=== PATIENT | female | born 1985 | race Caucasian/White ===

== ENCOUNTER 2018-11-12 05:41 | Inpatient (IN) | payer MEDICAID ==
[2018-11-12] MEDS ORDERED: Oxytocin 10 Units/1 ML SDV ONE ×2 (06:34→08:07)
[2018-11-12] MEDS: Lactated Ringers 1,000 ML IV SCH ×3 (06:53→20:31)
[2018-11-12] MEDS ORDERED: ePHEDrine 50 MG/ML SDV ONE (07:50)
[2018-11-12] MEDS ORDERED: ceFAZolin 2 GM in Premix Bag 1 BAG IV ONE (08:00)
[2018-11-12] MEDS ORDERED: fentaNYL 100 MCG/2 ML SDV ONE (08:22)
[2018-11-12] MEDS ORDERED: hydrOXYzine HCl 100 MG/2 ML SDV IM PRN (08:39)
[2018-11-12] MEDS ORDERED: Ondansetron 4 MG/2 ML SDV IVPUSH PRN (08:45)
[2018-11-12] MEDS: fentaNYL 100 MCG/2 ML SDV IVPUSH PRN ×5 (09:46→16:30)
--- NOTE | 2018-11-12 11:52 | OR ---
DATE OF PROCEDURE: 11/12/2018 PREOPERATIVE DIAGNOSES: Term , prior section. POSTOPERATIVE DIAGNOSES: Term , prior section. PROCEDURE: Repeat section. SURGEON: Tj Treadwell MD CARDIAC SURGEON: Christine Madrid, certified nurse head filter tank tender helper. Per [employer] standard of care guidelines, this operation requires a assistant baseball coach. Jade Maldonado, certified nurse head filter tank tender helper is a baby care assist. ANESTHESIA: Subarachnoid block. INDICATION: This 33-year-old white female is with her second child. Her first was delivered 11 years ago in [place], [place] by section. She is at 39 weeks' gestation today and is admitted to the hospital for a repeat section. Her last child had cardiac issues. This baby was evaluated in [place]. It appears that her heart is okay, but because of this, a request was made for Jade Maldonado's presence as a assist. I counseled the patient for surgery, including risks and alternatives, and she gave her informed consent to proceed. DESCRIPTION OF PROCEDURE: After adequate spinal anesthesia was obtained, a wedge was placed under her right flank. A Leon catheter was placed. Her abdomen was prepped and draped in the usual sterile fashion. Time-out was held. An incision was made through her existing Pfannenstiel scar. This was carried deep using Bovie cautery to the external oblique. The fascia was divided transversely, and then upper and lower subfascial flaps were developed. The muscles in the midline were and the peritoneum was elevated and incised. The peritoneal incision was extended superiorly and inferiorly the length of the flaps using Bovie cautery while protecting underlying structures. The bladder flap was dissected free from the lower uterine segment. A transverse lower uterine segment incision was made releasing normal-appearing amniotic fluid. The incision was extended laterally in both directions and curved superiorly with bandage scissors and bluntly. The child' s head was delivered. Its nose and mouth were suctioned dry. The child's body was delivered. A 1- minute delayed cord clamping was used. After 1 minute, the cord was clamped and divided, and Christine Madrid and Jade Maldonado attended to the child. The uterus was delivered up onto the anterior abdominal wall. Cord blood was collected. The placenta was delivered. It appeared to have a 3-vessel cord. Residual membranes were removed. 10 units of Pitocin was directly injected into the uterine body, and IV Pitocin was started by the Anesthesia Service. The transverse lower uterine segment incision was then closed with a running locking stitch with #1 Vicryl. A second running locking stitch of #1 Vicryl was placed over the first to further bolster the closure, and with this stitch, we brought up the bladder flap. The retrouterine space was irrigated and suctioned dry. All looked well. The uterus was returned to the abdominal cavity. The muscles and peritoneum in the midline were closed with #2 Vicryl. The incision was irrigated and suctioned dry. The fascia was closed with a running stitch of #2 Vicryl. The incision was again irrigated and suctioned dry. The skin was closed with subcuticular absorbable regine. Dermabond and a sterile dressing were applied. She tolerated the procedure well and was brought from the operating room in good condition. Tj Treadwell MD /[id number]
[2018-11-12] MEDS: Acetaminophen/HYDROcodone 325-5 MG Tab PO PRN ×3 (13:48→22:24)
[2018-11-13] MEDS: Acetaminophen/HYDROcodone 325-5 MG Tab PO PRN ×6 (02:34→23:40)
[2018-11-13] MEDS: Lactated Ringers 1,000 ML IV SCH (04:21)
--- NOTE | 2018-11-13 06:39 | PCM.SURGPN ---
- General Info Date of Service: 11/13/18 Date of Surgery/Procedure: 11/12/18 POD#: 1 Post-Op Diagnosis: section Admission Diagnosis/Problem: section Functional Status: Reports: Pain Controlled, Tolerating Diet, Ambulating, Urinating, Incentive Spirometry - Review of Systems General: Reports: No Symptoms HEENT: Reports: No Symptoms Pulmonary: Reports: No Symptoms Cardiovascular: Reports: No Symptoms Gastrointestinal: Reports: No Symptoms. Denies: Flatus, Nausea, Vomiting Genitourinary: Reports: No Symptoms Musculoskeletal: Reports: No Symptoms Skin: Reports: No Symptoms Neurological: Reports: No Symptoms Psychiatric: Reports: No Symptoms - Patient Data Vitals - Most Recent: Last Vital Signs Temp 96.6 F 11/13/18 02:38 Pulse 73 11/13/18 02:38 Resp 16 11/13/18 02:38 BP 138/77 11/13/18 02:38 Pulse Ox 99 11/13/18 02:38 Weight - Most Recent: 164 lb 6.4 oz I&O - Last 24 Hours: Intake & Output 11/12/18 11/12/18 11/13/18 14:59 22:59 06:59 Intake Total 340 1690 2998 Output Total 1650 2075 1850 Balance -1310 -385 1148 Lab Results Last 24 Hrs: Laboratory Results - last 24 hr 11/12/18 11/12/18 11/12/18 Range/Units 06:13 06:15 06:30 WBC 11.0 (4.5-11.0) K/uL RBC 4.14 (3.30-5.50) M/uL Hgb 12.5 (12.0-15.0) g/dL Hct 38.0 (36.0-48.0) % MCV 92 (80-98) fL MCH 30 (27-31) pg MCHC 33 (32-36) % Plt Count 194 (150-400) K/uL Sodium (140-148) mmol/L Potassium (3.6-5.2) mmol/L Chloride (100-108) mmol/L Carbon Dioxide (21-32) mmol/L Anion Gap (5.0-14.0) mmol/L BUN (7-18) mg/dL Creatinine (0.6-1.0) mg/dL Est Cr Clr Drug Dosing mL/min Estimated GFR (MDRD) (>60) Glucose (74-106) mg/dL Calcium (8.5-10.1) mg/dL Urine Opiates Screen Negative (NEGATIVE) Ur Oxycodone Screen Negative (NEGATIVE) Urine Methadone Screen Negative (NEGATIVE) Ur Propoxyphene Screen Negative (NEGATIVE) Ur Barbiturates Screen Negative (NEGATIVE) Ur Tricyclics Screen Negative (NEGATIVE) Ur Phencyclidine Scrn Negative (NEGATIVE) Ur Amphetamine Screen Negative (NEGATIVE) U Methamphetamines Scrn Negative (NEGATIVE) Urine MDMA Screen Negative (NEGATIVE) U Benzodiazepines Scrn Negative (NEGATIVE) U Cocaine Metab Screen Negative (NEGATIVE) U Marijuana (THC) Screen Negative (NEGATIVE) Blood Type O POSITIVE Gel Antibody Screen Negative 11/13/18 11/13/18 Range/Units 04:40 04:40 WBC 12.5 H (4.5-11.0) K/uL RBC 3.85 (3.30-5.50) M/uL Hgb 11.4 L (12.0-15.0) g/dL Hct 35.8 L (36.0-48.0) % MCV 93 (80-98) fL MCH 30 (27-31) pg MCHC 32 (32-36) % Plt Count 193 (150-400) K/uL Sodium 141 (140-148) mmol/L Potassium 3.8 (3.6-5.2) mmol/L Chloride 107 (100-108) mmol/L Carbon Dioxide 27 (21-32) mmol/L Anion Gap 6.8 (5.0-14.0) mmol/L BUN 6 L (7-18) mg/dL Creatinine 0.7 (0.6-1.0) mg/dL Est Cr Clr Drug Dosing 82.88 mL/min Estimated GFR (MDRD) > 60 (>60) Glucose 82 (74-106) mg/dL Calcium 8.5 (8.5-10.1) mg/dL Urine Opiates Screen (NEGATIVE) Ur Oxycodone Screen (NEGATIVE) Urine Methadone Screen (NEGATIVE) Ur Propoxyphene Screen (NEGATIVE) Ur Barbiturates Screen (NEGATIVE) Ur Tricyclics Screen (NEGATIVE) Ur Phencyclidine Scrn (NEGATIVE) Ur Amphetamine Screen (NEGATIVE) U Methamphetamines Scrn (NEGATIVE) Urine MDMA Screen (NEGATIVE) U Benzodiazepines Scrn (NEGATIVE) U Cocaine Metab Screen (NEGATIVE) U Marijuana (THC) Screen (NEGATIVE) Blood Type Gel Antibody Screen Med Orders - Current: Current Medications Hydrocodone Bitart/Acetaminophen ([place] 325-5 Mg) 1 - 2 tab PO Q4H PRN PRN Reason: Pain Last Admin: 11/13/18 02:34 Dose: 2 tab Fentanyl (Sublimaze) 50 mcg IVPUSH Q1H PRN PRN Reason: Pain (severe 7-10) Last Admin: 11/12/18 16:30 Dose: 50 mcg Hydroxyzine HCl (Vistaril) 50 mg IM Q4H PRN PRN Reason: Pain Lactated Ringer's (Ringers, Lactated) 1,000 mls @ 50 mls/hr IV ASDIRECTED [facility] Ondansetron HCl (Zofran) 4 mg IVPUSH Q6H PRN PRN Reason: Nausea/Vomiting Prenat Multivit/Rhine/Iron/Folic Ac ( Plus Iron) 1 each PO DAILY JOSÉ MIGUEL Discontinued Medications Ephedrine Sulfate (Ephedrine Sulfate) Confirm Administered Dose 50 mg .ROUTE .STK-MED ONE Stop: 11/12/18 07:51 Fentanyl (Sublimaze) Confirm Administered Dose 100 mcg .ROUTE .STK-MED ONE Stop: 11/12/18 08:23 Lactated Ringer's (Ringers, Lactated) 1,000 mls @ 125 mls/hr IV ASDIRECTED [facility] Last Admin: 11/13/18 04:21 Dose: 125 mls/hr Cefazolin Sodium/Dextrose 2 gm (/ Premix) 50 mls @ 100 mls/hr IV ONETIME ONE Stop: 11/12/18 08:29 Last Admin: 11/12/18 07:31 Dose: 100 mls/hr Oxytocin (Pitocin) Confirm Administered Dose 10 unit .ROUTE .STK-MED ONE Stop: 11/12/18 06:35 Last Admin: 11/12/18 09:26 Dose: 10 unit Oxytocin (Pitocin) Confirm Administered Dose 10 unit .ROUTE .STK-MED ONE Stop: 11/12/18 08:08 - Exam Wound/Incisions: Dressing Dry and Intact, No Drainage General: Alert, Oriented, Cooperative, No Acute Distress Lungs: Clear to Auscultation, Normal Respiratory Effort Cardiovascular: Regular Rate, Regular Rhythm GI/Abdominal Exam: Normal Bowel Sounds, Soft, Non-Tender Extremities: Normal Inspection Skin: Warm, Dry, Intact Psy/Mental Status: Alert, Normal Affect, Normal Mood - Problem List & Annotations (1) Delivery by section SNOMED Code(s): 061791700 Code(s): [id number] - Status: Acute Current Visit: Yes - Problem List Review Problem List Initiated/Reviewed/Updated: Yes - My Orders Last 24 Hours: Active Orders 24 hr Category Date Time Status Patient Status [ADT] Routine ADT 11/12/18 08:39 Active Ambulate [RC] ASDIRECTED Care 11/12/18 08:39 Active Ambulate [RC] PER UNIT ROUTINE Care 11/12/18 08:45 Active Antiembolic Devices [RC] .Routine Care 11/12/18 08:44 Active Communication Order [RC] ROUTINE Care 11/12/18 14:09 Active Dorsiflex/Plantar flex x 10 [RC] QSHIFT Care 11/12/18 08:39 Active Head of Bed Elevation [RC] CONTINUOUS Care 11/12/18 08:39 Active Intake and Output [RC] Q4HR Care 11/12/18 08:41 Active Notify Provider Intake and Out [RC] PRN Care 11/12/18 08:41 Active Notify Provider Vital Signs [RC] PRN Care 11/12/18 08:41 Active Oxygen Therapy [RC] PRN Care 11/12/18 08:39 Active Pneumonia Education [RC] UPON Care 11/12/18 08:39 Active Pulse Oximetry [RC] CONTINUOUS Care 11/12/18 08:42 Active RT Incentive Spirometry [RC] Q1HWA Care 11/12/18 08:39 Active Turn, Cough, Deep Breathe [RC] Q1HWA Care 11/12/18 08:39 Active Up With Assistance [RC] ASDIRECTED Care 11/12/18 08:39 Active Up ad [place] [RC] ASDIRECTED Care 11/12/18 08:39 Active Up to Chair [RC] TIDMEALS Care 11/12/18 08:39 Active VTE/DVT Education [RC] Click to Edit Care 11/12/18 08:44 Active Vital Signs [RC] PER UNIT ROUTINE Care 11/12/18 08:39 Active Respiratory Care Assess and Treatment [CONS] Routine Cons 11/12/18 08:39 Active Clear Liquid Diet [DIET] Diet 11/12/18 Lunch Active Nothing Per Oral Diet [DIET] Diet 11/12/18 Lunch Active Regular Diet [DIET] Diet 11/13/18 Breakfast Ordered CBC W/O DIFF,HEMOGRAM [HEME] DAILY Lab 11/14/18 05:11 Ordered Acetaminophen/HYDROcodone [[place] 325-5 MG] Med 11/12/18 10:18 Active 1 - 2 tab PO Q4H PRN Lactated Ringers @ 50 MLS/HR(1000ml) Med 11/13/18 06:45 Ordered Lactated Ringers [Ringers, Lactated] 1,000 ml IV ASDIRECTED Ondansetron [Zofran] Med 11/12/18 08:45 Active 4 mg IVPUSH Q6H PRN Vit with Ca/FA/Iron [ Plus Iron] Med 11/13/18 09:00 Active 1 each PO DAILY fentaNYL [Sublimaze] Med 11/12/18 08:39 Active 50 mcg IVPUSH Q1H PRN hydrOXYzine HCl [Vistaril] Med 11/12/18 08:39 Active 50 mg IM Q4H PRN Abdominal Binder [OM.PC] Per Unit Routine Oth 11/12/18 08:41 Ordered DVT/VTE Prophylaxis Reflex [OM.PC] Per Unit Routine Oth 11/12/18 08:44 Ordered Sequential Compression Device [OM.PC] Routine Oth 11/12/18 06:34 Ordered Sequential Compression Device [OM.PC] Routine Oth 11/12/18 08:45 Ordered Resuscitation Status Routine Resus Stat 11/12/18 08:39 Ordered Medication Orders Hydrocodone Bitart/Acetaminophen ([place] 325-5 Mg) 1 - 2 tab PO Q4H PRN PRN Reason: Pain Last Admin: 11/13/18 02:34 Dose: 2 tab Admin: 11/12/18 22:24 Dose: 2 tab Admin: 11/12/18 17:50 Dose: 1 tab Admin: 11/12/18 13:48 Dose: 1 tab Fentanyl (Sublimaze) 50 mcg IVPUSH Q1H PRN PRN Reason: Pain (severe 7-10) Last Admin: 11/12/18 16:30 Dose: 50 mcg Admin: 11/12/18 14:25 Dose: 50 mcg Admin: 11/12/18 12:29 Dose: 50 mcg Admin: 11/12/18 11:24 Dose: 50 mcg Admin: 11/12/18 09:46 Dose: 50 mcg Hydroxyzine HCl (Vistaril) 50 mg IM Q4H PRN PRN Reason: Pain Lactated Ringer's (Ringers, Lactated) 1,000 mls @ 50 mls/hr IV ASDIRECTED JOSÉ MIGUEL Ondansetron HCl (Zofran) 4 mg IVPUSH Q6H PRN PRN Reason: Nausea/Vomiting Prenat Multivit/Rhine/Iron/Folic Ac ( Plus Iron) 1 each PO DAILY JOSÉ MIGUEL - Assessment Assessment (Free Text/Narrative):: Doing well - Plan Plan (Free Text/Narrative):: Regular diet. Decrease IV, saline lock if eats well.
[2018-11-13] MEDS ORDERED: Lactated Ringers 1,000 ML IV SCH (06:45)
[2018-11-13] MEDS: Prenatal Multivitamin with Calcium/Folic Acid/Iron Tab PO SCH (11:16)
[2018-11-13] MEDS: Docusate Sodium 100 MG Cap PO PRN (13:36)
[2018-11-13] MEDS: Ibuprofen 600 MG Tab PO PRN (20:36)
[2018-11-14] MEDS: Ibuprofen 600 MG Tab PO PRN ×2 (02:09→08:59)
[2018-11-14] MEDS: Acetaminophen/HYDROcodone 325-5 MG Tab PO PRN ×2 (04:39→09:00)
[2018-11-14] MEDS: Prenatal Multivitamin with Calcium/Folic Acid/Iron Tab PO SCH (09:01)
[2018-11-14] MEDS: Docusate Sodium 100 MG Cap PO PRN (09:03)
--- NOTE | 2018-11-14 10:32 | PCM.DCSUM1 ---
Discharge Summary - Hospital Course Free Text/Narrative:: This 33 year old white female was admitted November 12, 2018 at 39 weeks gestation with her last delivery about eleven years ago by section. She underwent a repeat section delivering a girl with APGARs of 9 and 9. Her post operative course has been unremarkable. She is currently eating well, feels well, passing gas and wants to go home. She is discharged at this time in good condition. Diagnosis: Stroke: No - Discharge Data Discharge Date: 11/14/18 Discharge Disposition: Home, Self-Care 01 Condition: Good - Discharge Diagnosis/Problem(s) (1) Delivery by section SNOMED Code(s): 859129874 ICD Code: [id number] - Status: Acute Current Visit: Yes - Patient Summary/Data Consults: Consultations 11/12/18 08:39 Respiratory Care Assess and Treatment [CONS] Routine Comment: Physician Instructions: Post-Op Pneumonia Prevention - Patient Instructions Diet: Usual Diet as Tolerated Activity: No Lifting Over 10 Pounds (For six weeks from surgery), No Strenuous Activities (For six weeks from surgery) Driving, Other: Do not drive while taking narcotic pain medication. Showering/Bathing: May Shower, No Tub Bathing/Swimming Notify Provider of: Fever, Increased Pain, Swelling and Redness, Drainage, Nausea and/or Vomiting - Discharge Plan *PRESCRIPTION DRUG MONITORING PROGRAM REVIEWED*: No *COPY OF PRESCRIPTION DRUG MONITORING REPORT IN PATIENT NEGRITO: No Prescriptions/Med Rec: Acetaminophen/HYDROcodone [Tripp 325-5 MG] 1 - 2 tab PO Q4H PRN #30 tablet PRN Reason: Pain Home Medications: Home Meds Aspirin [Low Dose Aspirin EC] 81 mg PO DAILY 11/11/18 [History] Vit 40/Iron/Folic/Dha [ Multivitamin-Dha Sfgl] 1 each PO DAILY 11/11/18 [History] Acetaminophen/HYDROcodone [Tripp 325-5 MG] 1 - 2 tab PO Q4H PRN #30 tablet 11/14 [Rx] Docusate Sodium [Colace] 100 mg PO BID PRN cap 11/14/18 [Rx] Ibuprofen [Motrin] 600 mg PO Q6H PRN tablet 11/14/18 [Rx] Referrals: Tj Treadwell MD [Physician] - (See me in [facility] in about two weeks. ) - Discharge Summary/Plan Comment DC Time >30 min.: No - Patient Data Vitals - Most Recent: Last Vital Signs Temp 95.4 F 11/14/18 06:56 Pulse 81 11/14/18 06:56 Resp 16 11/14/18 06:56 BP 119/80 11/14/18 06:56 Pulse Ox 97 11/14/18 06:56 Weight - Most Recent: 164 lb 6.4 oz I&O - Last 24 hours: Intake & Output 11/13/18 11/14/18 11/14/18 22:59 06:59 14:59 Intake Total 1600 3000 Output Total 2 Balance 1600 2998 Lab Results - Last 24 hrs: Laboratory Results - last 24 hr 11/14/18 Range/Units 05:11 WBC 12.9 H (4.5-11.0) K/uL RBC 3.62 (3.30-5.50) M/uL Hgb 10.7 L (12.0-15.0) g/dL Hct 33.8 L (36.0-48.0) % MCV 93 (80-98) fL MCH 30 (27-31) pg MCHC 32 (32-36) % Plt Count 207 (150-400) K/uL Med Orders - Current: Current Medications Hydrocodone Bitart/Acetaminophen (Tripp 325-5 Mg) 1 - 2 tab PO Q4H PRN PRN Reason: Pain Last Admin: 11/14/18 09:00 Dose: 1 tab Docusate Sodium (Colace) 100 mg PO BID PRN PRN Reason: Constipation Last Admin: 11/14/18 09:03 Dose: 100 mg Fentanyl (Sublimaze) 50 mcg IVPUSH Q1H PRN PRN Reason: Pain (severe 7-10) Last Admin: 11/12/18 16:30 Dose: 50 mcg Hydroxyzine HCl (Vistaril) 50 mg IM Q4H PRN PRN Reason: Pain Lactated Ringer's (Ringers, Lactated) 1,000 mls @ 50 mls/hr IV ASDIRECTED JOSÉ MIGUEL Ibuprofen (Motrin) 600 mg PO Q6H PRN PRN Reason: Pain Last Admin: 11/14/18 08:59 Dose: 600 mg Ondansetron HCl (Zofran) 4 mg IVPUSH Q6H PRN PRN Reason: Nausea/Vomiting Prenat Multivit/Lamb/Iron/Folic Ac ( Plus Iron) 1 each PO DAILY [facility] Last Admin: 11/14/18 09:01 Dose: 1 each Discontinued Medications Ephedrine Sulfate (Ephedrine Sulfate) Confirm Administered Dose 50 mg .ROUTE .STK-MED ONE Stop: 11/12/18 07:51 Fentanyl (Sublimaze) Confirm Administered Dose 100 mcg .ROUTE .STK-MED ONE Stop: 11/12/18 08:23 Lactated Ringer's (Ringers, Lactated) 1,000 mls @ 125 mls/hr IV ASDIRECTED [facility] Last Admin: 11/13/18 04:21 Dose: 125 mls/hr Cefazolin Sodium/Dextrose 2 gm (/ Premix) 50 mls @ 100 mls/hr IV ONETIME ONE Stop: 11/12/18 08:29 Last Admin: 11/12/18 07:31 Dose: 100 mls/hr Oxytocin (Pitocin) Confirm Administered Dose 10 unit .ROUTE .STK-MED ONE Stop: 11/12/18 06:35 Last Admin: 11/12/18 09:26 Dose: 10 unit Oxytocin (Pitocin) Confirm Administered Dose 10 unit .ROUTE .STK-MED ONE Stop: 11/12/18 08:08
== END 2018-11-14 11:45 | disposition home or self-care (01) | DRG 788 ==
LOC: JP.SDS 05:41 → JP.MS 08:06
PROVIDERS: ADMIT Nurse Practitioner Family; ATTEND Surgery
PROC: 10D00Z1 Extraction of Products of Conception, Low, Open Approach (ICD-10-PCS; principal; 2018-11-12)
PROC: 6A550ZT Pheresis of Cord Blood Stem Cells, Single (ICD-10-PCS; 2018-11-12)
DX: O34.211 Maternal care for low transverse scar from previous cesarean delivery (principal); N85.8 Other specified noninflammatory disorders of uterus; O99.334 Smoking (tobacco) complicating childbirth; F17.210 Nicotine dependence, cigarettes, uncomplicated; Z3A.39 39 weeks gestation of pregnancy; Z37.0 Single live birth; Z79.82 Long term (current) use of aspirin; O75.89 Other specified complications of labor and delivery; Z87.59 Personal history of other complications of pregnancy, childbirth and the puerperium; F15.21 Other stimulant dependence, in remission
CPT/HCPCS: 36415; 59409; 80048; 80305-QW; 85027; 86850; 86900; 86901; 88307; 88312; 94762; A9270-GY; J0690; J2590; J3010; J7120